=== PATIENT | female | born 1985 | race Caucasian/White ===

== ENCOUNTER 2020-05-02 13:42 | Emergency (ER) | payer SELFPAY ==
[~2020-05-02] VITALS: Ht 175.3 cm; Wt 134.5 kg
[2020-05-02 13:50] VITALS: Ht 175.3 cm; Wt 134.5 kg
[2020-05-02] MEDS ORDERED: ZOLOFT100 MG PO (13:54)
[2020-05-02] MEDS ORDERED: METOPROLOL TART50 MG PO (13:54)
[2020-05-02] MEDS ORDERED: ATIVAN0.5 MG PO (13:54)
[2020-05-02] MEDS ORDERED: EUTHYROX (13:55)
[2020-05-02] MEDS ORDERED: CYCLOBENZAPRINE10 MG (13:55)
[2020-05-02] MEDS ORDERED: FEXMID7.5 MG (13:55)
[2020-05-02 14:23] LABS: BASOPHILS 0.5 % (0-2); EOSINOPHILS 1.6 % (0-7); HEMATOCRIT 37.3 % (36.0-48.0); HEMOGLOBIN 11.8 g/dL (12-16); IMMATURE GRANULOCYTES 0.3 % (0-5); LYMPHOCYTES 12.8 % (15-50); MCH 32.1 pg (26.0-34.0); MCHC 31.6 g/dL (31.0-37.0); MCV 101.4 fL (80.0-100.0); MEAN PLATELET VOLUME 12.7 fL (7.4-10.4); MONOCYTES 7.9 % (2-11); NEUTROPHILS 76.9 % (40-80); PLATELET COUNT 195 10x3/uL (130-400); RBC 3.68 10x6/uL (4.00-5.40); WBC 10.4 10x3/uL (4.8-10.8)
[2020-05-02 16:24] LABS: APTT 28.1 SECONDS (22.8-39.4); INR 1.2 (0.85-1.17); PROTIME 15.2 SECONDS (11.6-15.0)
[2020-05-02 17:11] LABS: CALC OSMOLALITY 272 mosm/kg (275-300); CALCIUM 9.1 mg/dL (8.5-10.1); CARBON DIOXIDE 29.7 mmol/L (21.0-32.0); CHLORIDE - SERUM 100 mmol/L (98-107); CREATININE - SERUM 0.7 mg/dL (0.6-1.3); GLUCOSE 117 mg/dL (74-106); POTASSIUM - SERUM 4.7 mmol/L (3.5-5.1); SODIUM 136 mmol/L (136-145); UREA NITROGEN 13 mg/dL (7-18); eGFR NON AFRICAN AMERICAN > 90 mL/min (90-120)
[2020-05-02 17:24] LABS: HCG SERUM NEGATIVE (NEGATIVE)
[2020-05-02 17:55] LABS: ALBUMIN 3.7 g/dL (3.4-5.0); ALKALINE PHOSPHATASE 148 U/L (30-120); ALT (SGPT) 34 U/L (10-68); BILIRUBIN - TOTAL 0.59 mg/dL (0.2-1.3); CKMB 0.3 U/L (0.0-3.6); CREATINE KINASE 87 UL (21-215); PRO BNP 724 pg/mL (0-125); PROTEIN - SERUM 7.2 g/dL (6.4-8.2)
[2020-05-02 17:56] LABS: TROPONIN-I < 0.017 ng/mL (0.000-0.060)
[2020-05-02] MEDS ORDERED: ZPAK PO (18:50)
[2020-05-02] MEDS ORDERED: PREDNISONE20 MG PO (18:50)
[2020-05-02] MEDS ORDERED: PROAIR HFA8.5 G1 INH (18:50)
[2020-05-02 19:40] VITALS: BP 168/84
== END 2020-05-02 19:42 | disposition home or self-care (01) ==
LOC: D.ER 13:42
PROVIDERS: Family Medicine
DX: I11.0 Hypertensive heart disease with heart failure (principal); I50.9 Heart failure, unspecified; J45.901 Unspecified asthma with (acute) exacerbation; Z20.828 Contact with and (suspected) exposure to other viral communicable diseases; E03.9 Hypothyroidism, unspecified; R05 Cough